=== PATIENT | male | born 1970 | race Caucasian/White ===

== ENCOUNTER 2017-12-09 17:18 | Emergency (ER) | payer BC ==
[2017-12-09 17:39] VITALS: BP 118/80
[2017-12-09] MEDS ORDERED: Tetracaine 0.5% OPTH.SOL 4 ML* 1 DROP BTL LEFT EYE ONE (18:09)
[2017-12-09] MEDS ORDERED: Fluorescein Sodium TOPICAL* 1 MG TEST STRIP OPHTHALMIC ONE (18:10)
--- NOTE | 2017-12-09 18:39 | ED ---
Throat Pain/Nasal Congestion - History of Current Complaint Chief Complaint: UCEar Time Seen by Provider: 12/09/17 18:07 Hx Obtained From: Patient Onset/Duration: Sudden Onset Severity: Moderate - Allergies/Home Medications Allergies/Adverse Reactions: Allergies Allergy/AdvReac Type Severity Reaction Status Date / Time No Known Allergies Allergy Verified 12/09/17 17:40 Home Medications: Home Medications NK [No Home Medications Reported] 12/09/17 [History Confirmed 12/09/17] PMH/Surg Hx/FS Hx/Imm Hx Previously Healthy: Yes Infectious Disease History: No Infectious Disease History: Denies: Traveled Outside the [place] in Last 30 Days - Social History Alcohol Use: None Substance Use Type: Reports: None Smoking Status (MU): Never Smoked Tobacco Review of Systems Constitutional: Negative Positive: Erythema, Other - fb sensation ENT: Negative Cardiovascular: Negative Respiratory: Negative All Other Systems Reviewed And Are Negative: Yes Physical Exam Triage Information Reviewed: Yes Vital Signs On Initial Exam: Initial Vitals Temp Pulse Resp BP Pulse Ox 36.6 C 61 16 118/80 100 12/09/17 17:34 12/09/17 17:34 12/09/17 17:34 12/09/17 17:34 12/09/17 17:34 Vital Signs Reviewed: Yes Appearance: Positive: Well-Appearing Eyes: Positive: Other: - conjunctival injection and obvious foreign body noted in the epicanthal fold, medially in left eye, fluorscein stain negative for corneal injury ENT: Positive: Normal ENT inspection Neck: Positive: Supple Respiratory/Lung Sounds: Positive: Clear to Auscultation Diagnostics - Vital Signs Vital Signs Temp Pulse Resp BP Pulse Ox 12/09/17 17:34 36.6 C 61 16 118/80 100 - Laboratory Lab Statement: Any lab studies that have been ordered have been reviewed, and results considered in the medical decision making process. EENT Course/Dx - Diagnoses Provider Diagnoses: Foreign body of sclera of left eye Discharge - Sign-Out/Discharge Documenting (check all that apply): Patient Departure All imaging exams completed and their final reports reviewed: No Studies - Discharge Plan Condition: Good Disposition: HOME Patient Education Materials: Eye Foreign Body (ED) Referrals: No Primary Care Phys,NOPCP [Primary Care Provider] - - Billing Disposition and Condition Condition: GOOD Disposition: Home
== END 2017-12-09 18:47 | disposition home or self-care (01) ==
LOC: UCCORT 17:18
DX: T15.82XA Foreign body in other and multiple parts of external eye, left eye, initial encounter (principal); X58.XXXA Exposure to other specified factors, initial encounter; Y92.9 Unspecified place or not applicable
CPT/HCPCS: 99201; A9270-GY; G0463